=== PATIENT | female | born 1965 | race Caucasian/White ===

== ENCOUNTER 2020-09-05 11:45 | Emergency (ER) | payer BC ==
[~2020-09-05] VITALS: Ht 172.7 cm; Wt 81.8 kg
[2020-09-05 12:34] LABS: BASO # 0.1 (0.0-0.2); BASO % 0.5 % (0.0-2.0); EOS # 0.7 (0.0-0.7); EOS % 5.3 % (0-4.0); GRAN # 9.8 (1.4-6.5); GRAN % 74.5 % (42.2-75.2); HEMATOCRIT 43.4 % (37.0-47.0); HEMOGLOBIN 15.2 g/dl (12.5-16.0); LYMPH # 1.8 (1.2-3.4); LYMPH % 13.8 % (20.0-51.0); MEAN CELL VOLUME 82 fl (80.0-100.0); MEAN CORPUSCULAR HEMOGLOBIN 29 pg (27.0-31.0); MEAN CORPUSCULAR HGB CONC 35 g/dl (33.0-37.0); MEAN PLATELET VOLUME 9.7 fl (7.4-10.4); MONO # 0.7 (0.1-0.6); MONO % 5.5 % (1.7-9.3); PLATELET COUNT 328 K/mm3 (130-400); REDCELL DISTRIBUTION WIDTH-CV 13.3 % (11.5-14.5)
[2020-09-05 12:38] LABS: ALANINE AMINOTRANSFERASE 30 U/L (4-34); ALBUMIN 4.5 gm/dL (3.5-5.0); ALKALINE PHOSPHATASE 135 U/L (50-136); ANION GAP 14 mmol/L (7-16); AST,SGOT 37 U/L (15-37); BILIRUBIN,TOTAL 2.2 mg/dL (0.0-1.0); BLOOD UREA NITROGEN 14 mg/dL (7-17); CALCIUM 9.2 mg/dL (8.4-10.2); CARBON DIOXIDE 22 mmol/L (22-30); CHLORIDE 103 mmol/L (98-107); CREATININE, serum 0.72 (0.52-1.25); GLUCOSE 109 mg/dL (74-106); POTASSIUM 3.4 mmol/L (3.4-5.0); SODIUM 138 mmol/L (137-145); TOTAL PROTEIN 7.6 gm/dL (6.4-8.2)
[2020-09-05] MEDS ORDERED: PRINIVIL20 MG PO (12:47)
[2020-09-05] MEDS ORDERED: MULTI-VITAMIN W1 TA2 PO (12:47)
[2020-09-05] MEDS ORDERED: PROFERRIN ES12 MG PO (12:48)
[2020-09-05] MEDS ORDERED: EFFEXOR-XR150 MG PO (12:49)
[2020-09-05] MEDS ORDERED: LIPITOR20 MG PO (12:50)
[2020-09-05 12:52] LABS: TROPONIN-I < 0.012 ng/mL (0.000-0.035)
[2020-09-05 13:02] LABS: COLLECTION METHOD CLEAN CATCH
[2020-09-05 13:13] LABS: MUCOUS Present /lpf; PH 8 (5-8); SQUAMOUS EPITHELIAL 0-2 /hpf; URINE APPEARANCE Clear; URINE BACTERIA None Seen /hpf; URINE BILIRUBIN Negative (NEGATIVE); URINE BLOOD Negative (NEGATIVE); URINE COLOR Yellow; URINE GLUCOSE Negative (NEGATIVE); URINE KETONE 2+ (NEGATIVE); URINE LEUKOCYTE ESTERASE Trace (NEGATIVE); URINE NITRATE Negative (NEGATIVE); URINE PROTEIN(semi-quant) 1+ (NEGATIVE); URINE RBC 0-2 /hpf; URINE UROBILINOGEN Negative (NEGATIVE)
[2020-09-05 16:43] VITALS: BP 127/93; PULSE 93; TEMP 98.4
== END 2020-09-05 16:43 | disposition home or self-care (01) ==
LOC: COL.ER 11:45
PROVIDERS: Physician Assistant
DX: K52.9 Noninfective gastroenteritis and colitis, unspecified (principal); F41.9 Anxiety disorder, unspecified; R00.0 Tachycardia, unspecified; I10 Essential (primary) hypertension; E78.5 Hyperlipidemia, unspecified; Z90.49 Acquired absence of other specified parts of digestive tract
CPT/HCPCS: J0500; J1885; J2405; J7030; Q9967